=== PATIENT | male | born 1960 | race Caucasian/White ===

== ENCOUNTER → 2017-12-27 | Outpatient (CLI) | payer OTHER ==
[~2017-12-27] VITALS: Ht 180.3 cm; Wt 88.0 kg
[~2017-12-27] MED LIST: OMEPRAZOLE40 M1 PO
== END | disposition home or self-care (01) ==
LOC: AMB 13:09
PROC: 0DBP8ZX Excision of Rectum, Via Natural or Artificial Opening Endoscopic, Diagnostic (ICD-10-PCS; principal; 2017-12-27)
DX: K62.1 Rectal polyp (principal); K64.8 Other hemorrhoids; K64.4 Residual hemorrhoidal skin tags; R93.5 Abnormal findings on diagnostic imaging of other abdominal regions, including retroperitoneum; B18.2 Chronic viral hepatitis C; Z80.0 Family history of malignant neoplasm of digestive organs; R10.30 Lower abdominal pain, unspecified; R19.7 Diarrhea, unspecified; Z80.6 Family history of leukemia
CPT/HCPCS: 88305